=== PATIENT | female | born 1955 | race Caucasian/White ===

== ENCOUNTER 2019-03-09 08:30 | Emergency (ER) | payer MEDICARE, OTHER ==
[~2019-03-09] VITALS: Ht 152.4 cm; Wt 96.4 kg
[2019-03-09 08:39] VITALS: BP 164/86; PULSE 63; RESP 16; Ht 152.4 cm; Wt 96.4 kg
[2019-03-09] MEDS ORDERED: KETOROLAC 30 MG INJ IM STA (08:55)
[2019-03-09] MEDS ORDERED: traMADol 50 MG TAB PO ONE (09:00)
[2019-03-09] MEDS ORDERED: CYCL10TA7 PO (10:09)
[2019-03-09] MEDS ORDERED: TRAM50TA2 PO (10:09)
--- NOTE | 2019-03-09 10:13 | ERD ---
ER Documentation Chief Complaint Chief Complaint RT HEEL PAIN X1 MONTH, MUCH WORSE TODAY HPI 63-year-old female presents with pain in the right heel for last month. She denies any history of trauma. She denies history of diabetes although may have prediabetes. She denies redness, fevers, additional symptoms. Denies restricted range of motion or weakness. ROS All systems reviewed and are negative except as per history of present illness. Medications Home Meds Active Scripts Cyclobenzaprine Hcl* (Cyclobenzaprine Hcl*) 10 Mg Tablet, 10 MG PO TID, #15 TAB Prov:RAMONA BARRETT MD 03/09/19 Tramadol HCl (Tramadol HCl) 50 Mg Tablet, 50 MG PO Q4 PRN for PAIN, #20 TAB Prov:RAMONA BARRETT MD 03/09/19 Allergies Allergies: Coded Allergies: No Known Allergy (Unverified , 03/09/19) PMhx/Soc History of Surgery: Yes (Left wrist pain, tubal ligation) Anesthesia Reaction: No Hx Miscellaneous Medical Probl: Yes (HTN, Hypothyroid) Hx Alcohol Use: No Hx Substance Use: No Hx Tobacco Use: No Smoking Status: Never smoker FmHx Family History: No diabetes, No coronary disease, No other Physical Exam Vitals Vital Signs Date Temp Pulse Resp B/P (MAP) Pulse Ox O2 O2 Flow FiO2 Time Delivery Rate 03/09/19 98.1 63 16 164/86 96 08:39 (112) Physical Exam Const: No acute distress Head: Atraumatic Eyes: Normal Conjunctiva ENT: Normal External Ears, Nose and Mouth. Neck: Full range of motion. No meningismus. Resp: Clear to auscultation bilaterally Cardio: Regular rate and rhythm, no murmurs Abd: Soft, non tender, non distended. Normal bowel sounds Skin: No petechiae or rashes Back: No midline or flank tenderness Ext: No cyanosis, or edema. Tenderness and mild swelling right heel without warmth, erythema, restricted range of motion weakness. Right lower extremity is neurovascular intact. No calf swelling or Homans sign. Neur: Awake and alert Psych: Normal Mood and Affect Results 24 hrs Current Medications Medications Dose Sig/Vero Start Time Status Last (Trade) Ordered Route PRN Stop Time Admin Dose Reason Admin Ketorolac 30 mg ONCE STAT 03/09/19 DC 03/09/19 Tromethamine IM 08:55 03/09/19 09:06 (Toradol) 08:57 Tramadol 50 mg ONCE ONCE 03/09/19 DC 03/09/19 HCl PO 09:00 03/09/19 09:05 (Ultram) 09:01 Procedures/MDM X-ray right foot 3V Interpreted by me: Bones: No fracture Joints: No dislocation Foreign body: None impression-small calcaneal spur otherwise normal appearing right foot x-ray Presents with signs and symptoms of right foot plantar fasciitis. She has no signs of infection, DVT, ischemia or deficits or fracture dislocation. She will be treated with tramadol, Flexeril and patient was placed in a right lower extremity walker boot due to pain. She is neurovascular intact after boot. She will be discharged home with primary care and possibly podiatry evaluation for further evaluation. She was advised to stretch and ice as well. The patient was stable with no new complaints during the ER course. Clinically, there is no current evidence to suggest meningitis, sepsis, acute abdomen, pneumonia, stroke, acute coronary syndrome, pulmonary embolism, aortic dissection or any other emergent condition appearing to require further evaluation or hospitalization. Patient counseled regarding my diagnostic impression and care plan. Prior to discharge all questions answered. Pt agrees with treatment plan and understands strict return precautions. Pt is instructed to follow up with primary care provider within 24-48 hours. Precautionary instructions provided including instructions to return to the ER if not improving or for any worsening or changing symptoms or concerns. Departure Diagnosis: Primary Impression: Foot pain Laterality: right Qualified Codes: M79.671 - Pain in right foot Condition: Stable Patient Instructions: Plantar Fasciitis Referrals: SANTIAGO CURTIS ABID N DPM HAGOPJANIAN, ARMEN DPM Additional Instructions: There is a small spur on x-ray. Likely plantar fasciitis. Recommend stretching and ice and podiatry or orthopedic evaluation. Recheck for fevers, redness, new symptoms. RAMONA BARRETT MD Mar 09, 2019 10:13
== END 2019-03-09 10:32 | disposition home or self-care (01) ==
LOC: FTE 08:30
DX: M79.671 Pain in right foot (principal); I10 Essential (primary) hypertension; E03.9 Hypothyroidism, unspecified
CPT/HCPCS: 73630; 96372; 99284; J1885

== ENCOUNTER 2019-07-06 07:30 | Emergency (ER) | payer OTHER ==
[~2019-07-06] VITALS: Ht 152.4 cm; Wt 98.7 kg
[~2019-07-06 07:30] MED LIST: ALPR0.5T PO; ASPI-817 PO; CYCL10TA7 PO; LEVO25TA6 PO; QUIN40TA31 PO; TRAM50TA2 PO
[2019-07-06 07:32] VITALS: Ht 152.4 cm; Wt 98.7 kg
[2019-07-06] MEDS ORDERED: SOD CHLORIDE 0.9% 1,000 ML IV STA (07:58)
[2019-07-06] MEDS ORDERED: LORAZEPAM 0.5 MG TAB PO ONE (08:00)
--- NOTE | 2019-07-06 08:24 | ERD ---
ER Documentation Chief Complaint Chief Complaint confused this morning at 0530, now alert and oriented x 4, no neuro deficit HPI This is a 63-year-old woman brought in by daughter for morning confusion that lasted for about an hour, daughter states she called her crying and stated she did not know she had to go to work today, it seems she was late for work. She was able to answer all of the daughter's questions and recalled other family members, she had no slurred speech, no complaints of headache, no complaints of weakness in her arms or legs, no gait ataxia. Patient was crying and upset and then symptoms resolved about an hour later. She has had no complaints of chest pain or shortness of breath, no fevers or chills, no vomiting or diarrhea. ROS All systems reviewed and are negative except as per history of present illness. Medications Home Meds Active Scripts Alprazolam* (Xanax*) 0.5 Mg Tab, 0.5 MG PO BID PRN for ANXIETY, #12 TAB Prov:NAYELI LINDA MD 07/06/19 Reported Medications Quinapril Hcl (Quinapril Hcl) 40 Mg Tablet, 40 MG PO BID, #60 TAB 07/06/19 Aspirin* (Aspirin* EC) 81 Mg Tablet.dr, 81 MG PO DAILY, TAB 07/06/19 Levothyroxine Sodium* (Levothyroxine Sodium*) 25 Mcg Tablet, 25 MCG PO BEFORE BREAKFAST for 90 Days, #90 TAB 07/06/19 Discontinued Scripts Cyclobenzaprine Hcl* (Cyclobenzaprine Hcl*) 10 Mg Tablet, 10 MG PO TID, #15 TAB Prov:RAMONA BARRETT MD 03/09/19 Tramadol HCl (Tramadol HCl) 50 Mg Tablet, 50 MG PO Q4 PRN for PAIN, #20 TAB Prov:RAMONA BARRETT MD 03/09/19 Allergies Allergies: Coded Allergies: No Known Allergy (Unverified , 07/06/19) PMhx/Soc Obesity, prediabetes History of Surgery: Yes (Left wrist pain, tubal ligation) Anesthesia Reaction: No Hx Miscellaneous Medical Probl: Yes (HTN, Hypothyroid) Hx Alcohol Use: No Hx Substance Use: No Hx Tobacco Use: No FmHx Family History: No diabetes Physical Exam Vitals Vital Signs Date Temp Pulse Resp B/P (MAP) Pulse Ox O2 O2 Flow FiO2 Time Delivery Rate 07/06/19 98.6 100 18 187/97 96 07:32 (127) Physical Exam GENERAL: Well-developed, well-nourished, well-hydrated, appears anxious, afebrile NEURO: Alert and oriented 3, cranial nerves II through XII intact bilaterally, pupils equal round reactive to light, no focal deficits or facial asymmetry, sensation intact distally Strength 5/5 in upper and lower extremities bilaterally CARDIAC: Tachycardic and regular, no murmurs rubs or gallops LUNGS: Clear bilaterally no wheezing crackles or stridor SKIN: Warm and dry to touch, no abrasions, contusions, or hematomas, no lacerations, no ecchymosis, no target lesions, and without ulcers EXTREMITIES: No clubbing cyanosis or edema, calves are bilaterally symmetrical, no Homans sign, no popliteal cord sign. Distal pulses equal and bilateral PSYCH: Anxious and tearful Result Diagram: 07/06/19 0810 07/06/19 0810 Results 24 hrs Laboratory Tests Test 07/06/19 08:10 07/06/19 08:27 White Blood Count 6.4 10^3/ul Red Blood Count 4.82 10^6/ul Hemoglobin 12.7 g/dl Hematocrit 40.7 % Mean Corpuscular Volume 84.4 fl Mean Corpuscular Hemoglobin 26.3 pg Mean Corpuscular Hemoglobin Concent 31.2 g/dl Red Cell Distribution Width 14.2 % Platelet Count 204 10^3/UL Mean Platelet Volume 11.9 fl Immature Granulocytes % 0.300 % Neutrophils % 63.5 % Lymphocytes % 23.1 % Monocytes % 7.3 % Eosinophils % 4.7 % Basophils % 1.1 % Nucleated Red Blood Cells % 0.0 /100WBC Immature Granulocytes # 0.020 10^3/ul Neutrophils # 4.1 10^3/ul Lymphocytes # 1.5 10^3/ul Monocytes # 0.5 10^3/ul Eosinophils # 0.3 10^3/ul Basophils # 0.1 10^3/ul Nucleated Red Blood Cells # 0.0 10^3/ul Sodium Level 144 mmol/L Potassium Level 3.7 mmol/L Chloride Level 109 mmol/L Carbon Dioxide Level 27 mmol/L Anion Gap 8 Blood Urea Nitrogen 13 mg/dl Creatinine 0.63 mg/dl Est Glomerular Filtrat Rate mL/min > 60 mL/min Glucose Level 112 mg/dl Calcium Level 9.5 mg/dl Total Bilirubin 0.4 mg/dl Direct Bilirubin 0.00 mg/dl Indirect Bilirubin 0.4 mg/dl Aspartate Amino Transf (AST/SGOT) 26 IU/L Alanine Aminotransferase (ALT/SGPT) 24 IU/L Alkaline Phosphatase 126 IU/L Total Protein 8.3 g/dl Albumin 4.1 g/dl Globulin 4.20 g/dl Albumin/Globulin Ratio 0.97 Lipase 100 U/L Urine Color STRAW Urine Clarity CLEAR Urine pH 7.0 Urine Specific Kersey 1.005 Urine Ketones NEGATIVE mg/dL Urine Nitrite NEGATIVE mg/dL Urine Bilirubin NEGATIVE mg/dL Urine Urobilinogen NEGATIVE mg/dL Urine Leukocyte Esterase NEGATIVE Chris/ul Urine Hemoglobin NEGATIVE mg/dL Urine Glucose NEGATIVE mg/dL Urine Total Protein NEGATIVE mg/dl Current Medications Medications Dose Sig/Vero Start Time Status Last (Trade) Ordered Route PRN Stop Time Admin Dose Reason Admin Sodium 1,000 ml @ Q1H STAT 07/06/19 DC 07/06/19 Chloride 1,000 mls/hr IV 07:58 07/06/19 08:24 08:57 Lorazepam 0.5 mg ONCE ONCE 07/06/19 DC 07/06/19 (Ativan) PO 08:00 07/06/19 08:29 08:01 Procedures/MDM IV line was established patient was placed on patient monitor rhythm strip revealed a narrow complex tachycardia at 100 bpm with upright P and T waves. Patient was afebrile CT scan of the brain was negative for acute bleed mass or shift. I administered 1 L normal saline IV and lorazepam 0.5 mg p.o. x1 CBC and electrolytes are normal, liver function tests were normal, urinalysis negative for infection. Patient's symptoms completely resolved and vital signs remain normal, she feels much better and looks well and will be discharged to follow-up with PMD. Differential diagnoses considered, included but not limited to acute coronary syndrome, pulmonary embolism, aortic dissection, abdominal aortic aneurysm, sepsis, stroke, meningitis, encephalitis, pneumonia, appendicitis, cholecystitis, bowel obstruction, pyelonephritis, nephrolithiasis, cystitis, as well as metabolic, hematologic, and electrolyte abnormalities. As well as abscess, cellulitis, fractures, and dislocations. Patient feels much better at this time, and vital signs are normal, symptoms have improved. I did give strict instructions to return to the ED if symptoms continue or worsen, patient will otherwise follow-up with primary care physician. Patient understood instructions and agreed to plan. Disclaimer: Inadvertent spelling and grammatical errors are likely due to EHR/dictation software use and do not reflect on the overall quality of patient care. Also, please note that the electronic time recorded on this note does not necessarily reflect the actual time of the patient encounter. Departure Diagnosis: Primary Impression: Anxiety in acute stress reaction Condition: NAYELI Hanson MD Jul 06, 2019 08:24
[2019-07-06 10:31] VITALS: BP 134/69; PULSE 64; RESP 17
== END 2019-07-06 10:47 | disposition home or self-care (01) ==
LOC: E/R 07:30
DX: F43.0 Acute stress reaction (principal); I10 Essential (primary) hypertension; Z79.82 Long term (current) use of aspirin
CPT/HCPCS: 36415; 70450; 80053; 81003; 83690; 85025; 87086; 99285; J7030